=== PATIENT | male | born 1960 | race Caucasian/White ===

== ENCOUNTER 2021-04-27 22:32 | Emergency (ER) | payer BC ==
[2021-04-27 22:40] VITALS: BP 123/77; PULSE 90; TEMP 98.3; BMI 29.2
[2021-04-27] MEDS ORDERED: LIDOCAINE HCL/EPINEPHRINE/PF 20 ML VIAL ONE (22:48)
[2021-04-27] MEDS ORDERED: LIDOCAINE 2%/EPINEPHRINE 1:100000 (50 ML MD VIAL) INF ONE (22:48)
== END 2021-04-28 00:20 | disposition home or self-care (01) ==
LOC: FER 22:32
PROC: 0HQ0XZZ Repair Scalp Skin, External Approach (ICD-10-PCS; principal; 2021-04-27)
DX: R42 Dizziness and giddiness (principal); S01.01XA Laceration without foreign body of scalp, initial encounter; W01.198A Fall on same level from slipping, tripping and stumbling with subsequent striking against other object, initial encounter
CPT/HCPCS: 70450-TC; 99284-25